=== PATIENT | male | born 1975 | race Two or more races ===

== ENCOUNTER → 2017-09-14 | Outpatient (REF) | LOC: M SMT 13:58 | DX: M54.5 Low back pain (principal) ==

== ENCOUNTER → 2022-12-08 | Outpatient (CLI) | payer OTHER | LOC: M SLEEP 20:00 | PROVIDERS: ATTEND Registered Nurse | DX: G47.33 Obstructive sleep apnea (adult) (pediatric) (principal) ==

== ENCOUNTER → 2023-01-28 | Outpatient (REF) | LOC: M PLAIMG 15:14 | PROVIDERS: ATTEND Internal Medicine | DX: R06.02 Shortness of breath (principal) ==